=== PATIENT | male | born 1985 | race Caucasian/White ===

== ENCOUNTER 2017-03-08 17:19 | Emergency (ER) | payer SELFPAY | END 2017-03-08 20:41 | disposition home or self-care (01) | LOC: ER 17:19 | DX: M71.341 Other bursal cyst, right hand (principal) | CPT/HCPCS: 73130; 76882; 99284-25 ==

== ENCOUNTER 2017-05-06 20:13 | Emergency (ER) | payer SELFPAY ==
[2017-05-06] MEDS: IBUPROFEN 600 MG TABLET. PO (21:18)
[2017-05-06] MEDS: ACETAMINOPHEN 500 MG TABLET PO (21:18)
== END 2017-05-06 22:25 | disposition home or self-care (01) ==
LOC: ER 20:13
DX: J11.1 Influenza due to unidentified influenza virus with other respiratory manifestations (principal)
CPT/HCPCS: 99283

== ENCOUNTER 2017-07-18 20:07 | Emergency (ER) | payer SELFPAY | END 2017-07-18 21:14 | disposition left against medical advice (07) | LOC: ER 21:14 | DX: K08.89 Other specified disorders of teeth and supporting structures (principal); Z53.21 Procedure and treatment not carried out due to patient leaving prior to being seen by health care provider ==